=== PATIENT | female | born 1950 | race Asian ===

== ENCOUNTER 2024-02-22 13:41 | Inpatient (IN) | payer OTHER ==
[2024-02-22] VITALS (10 sets, daily range): BP systolic 104–185; BP diastolic 56–81; PULSE 65–87; RESP 16–17; TEMP 98.7; O2SAT 94–98
[~2024-02-22] VITALS: Ht 154.9 cm; Wt 52.5 kg
[~2024-02-22 13:41] MED LIST: ASPI-1444 PO; CALC0.25 PO; CARV6 PO; DAPA5TAB PO; HYDR50TA37 PO; INSLAN SQ; ISOS20TA9 PO; LOVA20TA73 PO; NIFE-40 PO
[2024-02-22 15:49] LABS: BASOPHILS % (AUTO) 0.6 % (0.0-2.0); EOSINOPHILS % (AUTO) 1.4 % (1.0-6.0); HEMATOCRIT 33.6 % (36-46); LYMPHOCYTES # (AUTO) 1.1 K/uL (1.0-4.8); LYMPHOCYTES % (AUTO) 16.8 % (22.0-44.0); MEAN CORPUSCULAR HEMOGLOBIN 31.8 pg (26.0-34.0); MEAN CORPUSCULAR HGB CONC 32.7 G/dL (31.0-37.0); MEAN CORPUSCULAR VOLUME 97 fL (80-100); MONOCYTES # (AUTO) 0.4 K/uL (0.1-1.0); MONOCYTES % (AUTO) 6.5 % (2.0-9.0); NEUTROPHILS # (AUTO) 5.1 K/uL (1.8-7.7); NEUTROPHILS % (AUTO) 74.7 % (40.0-70.0); PLATELET COUNT (AUTO) 161 K/uL (150-450); RED BLOOD CELL COUNT(AUTO) 3.46 MIL/uL (4.00-5.20); RED CELL DISTRIBUTION WIDTH 14.6 % (11.5-14.5); WHITE BLOOD COUNT (AUTO) 6.8 K/uL (4.5-11.0)
[2024-02-22 15:54] LABS: ANION GAP 5 mmol/L (8-16); CALCIUM, TOTAL 9.2 mg/dL (8.8-10.5); CARBON DIOXIDE 36 mmol/L (22-29); CHLORIDE 93 mmol/L (98-107); CREATININE 2.68 mg/dL (0.60-1.30); GLOMERULAR FILTR. RATE CALC 17 mL/min (>60); GLUCOSE,RANDOM 209 mg/dL (70-110); POTASSIUM 3.6 mmol/L (3.5-5.1); SODIUM SERUM 134 mmol/L (136-145); UREA NITROGEN, BLOOD 22 mg/dL (7-18)
[2024-02-22 16:04] LABS: TROPONIN I-HIGH SENSITIVITY > 25000 ng/L (<51)
[2024-02-22 16:09] LABS: B-TYPE NATRIURETIC PEPTIDE > 5000 pg/mL (0-100)
[2024-02-22] MEDS ORDERED: ATOR40TA71 PO (16:58)
[2024-02-22] MEDS ORDERED: INSU100I26 SQ (16:58)
[2024-02-22] MEDS ORDERED: FERR-89 PO (16:58)
[2024-02-22] MEDS ORDERED: SEVE800T38 PO (16:58)
[2024-02-22] MEDS ORDERED: LOSA-382 PO (16:58)
[2024-02-22] MEDS ORDERED: CLOP75TA32 PO (16:58)
[2024-02-22] MEDS ORDERED: ASPI-1450 PO (16:58)
[2024-02-22] MEDS ORDERED: HEPARIN SODIUM,PORCINE 5,000 UNITS/ML VIAL IVP PRN ×2 (17:00)
[2024-02-22] MEDS ORDERED: HEPARIN SODIUM,PORCINE 5,000 UNITS/ML VIAL IVP ONE (17:00)
[2024-02-22] MEDS: HEPARIN SODIUM,PORCINE 5,000 UNITS/ML VIAL IVP ONE (17:01)
[2024-02-22] MEDS: HEPARIN SODIUM 25000 UNITS/D5W 250 ML IV PRN (17:05)
[2024-02-22] MEDS ORDERED: VERAPAMIL HCL 2.5 MG/ML 2 ML VIAL ONE (17:22)
[2024-02-22] MEDS ORDERED: SODIUM BICARBONATE 50 MEQ/50 ML VIAL ONE (17:22)
[2024-02-22] MEDS ORDERED: NITROGLYCERIN 50 MG/D5% WATER 250 ML ONE (17:22)
[2024-02-22] MEDS ORDERED: LIDOCAINE/PF 1% 30 ML VIAL ONE (17:22)
[2024-02-22] MEDS ORDERED: HEPARIN SODIUM 1000 UNITS/NS 1,000 ML ONE (17:22)
[2024-02-22] MEDS ORDERED: IOHEXOL 300 MG/ML 100 ML VIAL ONE (17:22)
[2024-02-22] MEDS ORDERED: HYDR50TA36 PO (17:24)
[2024-02-22] MEDS ORDERED: ISOS20TA85 PO (17:24)
[2024-02-22] MEDS ORDERED: LOVA20TA73 PO (17:24)
[2024-02-22 17:25] LABS: PROTHROMBIN TIME 10.2 SEC (9.4-11.6)
[2024-02-22] MEDS ORDERED: FentaNYL CITRATE PF 100 MCG/2 ML VIAL ONE (17:46)
[2024-02-22] MEDS ORDERED: MIDAZOLAM HCL 2 MG/2 ML VIAL ONE (17:47)
[2024-02-22] MEDS ORDERED: MORPHINE SULFATE 2 MG/ML SYRINGE IVP PRN (18:15)
[2024-02-22] MEDS ORDERED: MAGNESIUM HYDROXIDE SUSPENSION 30 ML UDCUP PO PRN (18:15)
[2024-02-22] MEDS ORDERED: HYDROCODONE/ACETAMINOPHEN 5-325 MG TABLET PO PRN (18:15)
[2024-02-22] MEDS ORDERED: ZOLPIDEM TARTRATE 5 MG TABLET PO PRN (18:15)
[2024-02-22] MEDS ORDERED: ALBUTEROL SULFATE 2.5 MG/0.5 ML NEB SOLUTION NEB PRN (18:15)
[2024-02-22] MEDS ORDERED: IPRATROPIUM BROMIDE 0.5 MG/2.5 ML NEB SOLUTION NEB PRN (18:15)
[2024-02-22] MEDS ORDERED: BISACODYL 10 MG RECTAL RECTAL SUPPOSITORY PR PRN (18:15)
[2024-02-22] MEDS ORDERED: ONDANSETRON HCL 4 MG/2 ML VIAL IVP PRN (18:15)
[2024-02-22] MEDS ORDERED: HydrALAZINE HCL 20 MG/ML VIAL ONE (18:31)
[2024-02-22] MEDS: IOHEXOL 300 MG/ML 100 ML VIAL ICOR ONE (18:49)
[2024-02-22] MEDS: LIDOCAINE 1% 30 ML/SOD BICARB 8.4% 4 ML SQ ONE (18:49)
[2024-02-22] MEDS: HEPARIN SODIUM 1000 UNITS/NS 1,000 ML IARTER ONE (18:50)
[2024-02-22] MEDS: FentaNYL CITRATE PF 100 MCG/2 ML VIAL IVP ONE (18:50)
[2024-02-22] MEDS: HydrALAZINE HCL 20 MG/ML VIAL IVP ONE (18:50)
[2024-02-22] MEDS: MIDAZOLAM HCL 2 MG/2 ML VIAL IVP ONE (18:51)
[2024-02-22] MEDS ORDERED: ONDANSETRON HCL 4 MG/2 ML VIAL ONE (19:15)
[2024-02-22] MEDS: ONDANSETRON HCL 4 MG/2 ML VIAL IVP ONE (19:25)
[2024-02-22] MEDS: ISOSORBIDE MONONITRATE 20 MG TABLET PO SCH (21:08)
[2024-02-22] MEDS: CARVEDILOL 6.25 MG TABLET PO SCH (21:08)
[2024-02-22] MEDS: HydrALAZINE HCL 50 MG TABLET PO SCH (21:09)
[2024-02-22] MEDS: CLOPIDOGREL BISULFATE 75 MG TABLET PO SCH (21:09)
[2024-02-22] MEDS: ACETAMINOPHEN 325 MG TABLET PO PRN (21:09)
[2024-02-23] VITALS: BP 101/43; PULSE 71; RESP 17; TEMP 98.9; O2SAT 98
[2024-02-23 01:00] VITALS: BP 124/58; PULSE 67
[2024-02-23 04:00] VITALS: BP 141/59; PULSE 74; PULSE 76; RESP 16; TEMP 98.7; O2SAT 98
[2024-02-23 06:06] LABS: BASOPHILS % (AUTO) 0.8 % (0.0-2.0); EOSINOPHILS % (AUTO) 0.6 % (1.0-6.0); HEMATOCRIT 27.6 % (36-46); HEMOGLOBIN 9.3 g/dL (12.0-16.0); LYMPHOCYTES # (AUTO) 0.9 K/uL (1.0-4.8); MEAN CORPUSCULAR HEMOGLOBIN 32.7 pg (26.0-34.0); MEAN CORPUSCULAR HGB CONC 33.6 G/dL (31.0-37.0); MEAN CORPUSCULAR VOLUME 97 fL (80-100); MONOCYTES # (AUTO) 0.3 K/uL (0.1-1.0); MONOCYTES % (AUTO) 6.5 % (2.0-9.0); NEUTROPHILS % (AUTO) 75.1 % (40.0-70.0); PLATELET COUNT (AUTO) 162 K/uL (150-450); RED BLOOD CELL COUNT(AUTO) 2.85 MIL/uL (4.00-5.20); RED CELL DISTRIBUTION WIDTH 14.4 % (11.5-14.5); WHITE BLOOD COUNT (AUTO) 5.3 K/uL (4.5-11.0)
[2024-02-23 06:16] LABS: CALCIUM, TOTAL 8.6 mg/dL (8.8-10.5); CREATININE 3.94 mg/dL (0.60-1.30); POTASSIUM 4.2 mmol/L (3.5-5.1)
[2024-02-23 06:34] LABS: TROPONIN I-HIGH SENSITIVITY 9920 ng/L (<51)
[2024-02-23 07:57] VITALS: BP 135/58; PULSE 75; RESP 18; TEMP 98.8; O2SAT 92
[2024-02-23] MEDS ORDERED: HEPARIN SODIUM,PORCINE 5,000 UNITS/ML VIAL IVP PRN ×2 (08:30)
[2024-02-23] MEDS ORDERED: HEPARIN SODIUM 25000 UNITS/D5W 250 ML IV PRN (08:30)
[2024-02-23] MEDS: ASPIRIN 81 MG CHEWABLE TABLET PO SCH (08:41)
[2024-02-23] MEDS: DAPAGLIFLOZIN PROPANEDIOL 5 MG TABLET PO SCH (08:41)
[2024-02-23] MEDS: NIFEdipine 30 MG ER TABLET PO SCH (08:41)
[2024-02-23] MEDS: LOVASTATIN 20 MG TABLET PO SCH (08:41)
[2024-02-23] MEDS: PANTOPRAZOLE SODIUM 40 MG DR TABLET PO SCH (08:42)
[2024-02-23] MEDS: SEVELAMER CARBONATE 800 MG TABLET PO SCH (08:42)
[2024-02-23 09:04] LABS: BASOPHILS % (AUTO) 0.5 % (0.0-2.0); EOSINOPHILS % (AUTO) 0.4 % (1.0-6.0); HEMATOCRIT 28.2 % (36-46); HEMOGLOBIN 9.6 g/dL (12.0-16.0); LYMPHOCYTES # (AUTO) 0.8 K/uL (1.0-4.8); LYMPHOCYTES % (AUTO) 18.4 % (22.0-44.0); MEAN CORPUSCULAR HGB CONC 33.9 G/dL (31.0-37.0); MEAN CORPUSCULAR VOLUME 98 fL (80-100); MONOCYTES # (AUTO) 0.4 K/uL (0.1-1.0); MONOCYTES % (AUTO) 8.2 % (2.0-9.0); NEUTROPHILS # (AUTO) 3.3 K/uL (1.8-7.7); NEUTROPHILS % (AUTO) 72.5 % (40.0-70.0); PLATELET COUNT (AUTO) 153 K/uL (150-450); RED CELL DISTRIBUTION WIDTH 14.8 % (11.5-14.5); WHITE BLOOD COUNT (AUTO) 4.6 K/uL (4.5-11.0)
[2024-02-23 09:17] LABS: PROTHROMBIN TIME 10.3 SEC (9.4-11.6)
[2024-02-23 10:48] VITALS: BP 112/47; PULSE 70; RESP 18; TEMP 98.8; O2SAT 99
== END 2024-02-23 13:29 | disposition home or self-care (01) | DRG 280 ==
LOC: EMS 13:41 → EDH 16:39 → 5N 17:39
PROVIDERS: ADMIT Hospitalist; ATTEND Hospitalist
PROC: 4A023N7 Measurement of Cardiac Sampling and Pressure, Left Heart, Percutaneous Approach (ICD-10-PCS; principal; 2024-02-22)
PROC: B41F1ZZ Fluoroscopy of Right Lower Extremity Arteries using Low Osmolar Contrast (ICD-10-PCS; 2024-02-22)
PROC: B2111ZZ Fluoroscopy of Multiple Coronary Arteries using Low Osmolar Contrast (ICD-10-PCS; 2024-02-22)
PROC: B2181ZZ Fluoroscopy of Left Internal Mammary Bypass Graft using Low Osmolar Contrast (ICD-10-PCS; 2024-02-22)
DX: I21.4 Non-ST elevation (NSTEMI) myocardial infarction (principal); I50.43 Acute on chronic combined systolic (congestive) and diastolic (congestive) heart failure; N18.6 End stage renal disease; I13.2 Hypertensive heart and chronic kidney disease with heart failure and with stage 5 chronic kidney disease, or end stage renal disease; E11.22 Type 2 diabetes mellitus with diabetic chronic kidney disease; M25.511 Pain in right shoulder; E78.5 Hyperlipidemia, unspecified; I25.10 Atherosclerotic heart disease of native coronary artery without angina pectoris; Z95.1 Presence of aortocoronary bypass graft; Z99.2 Dependence on renal dialysis; I25.2 Old myocardial infarction
CPT/HCPCS: 71045; 80048; 83880; 84484; 85025; 85610; 85730; 93005; 93306; 99285; J0360; J1644; J2250; J2405; J3010; J3490; Q9967; 36415-L1; 36415-TC; Z7610